=== PATIENT | female | born 1995 | race Caucasian/White ===

== ENCOUNTER 2017-09-21 12:22 | Emergency (ER) | payer BC, OTHER ==
[2017-09-21] MEDS: IBUPROFEN 200 MG TAB PO (13:06)
[2017-09-21] MEDS: ACETAMINOPHEN 325 MG TAB PO (13:06)
== END 2017-09-21 14:29 | disposition home or self-care (01) ==
LOC: FTE 12:22
DX: M54.10 Radiculopathy, site unspecified (principal); M54.2 Cervicalgia; R20.2 Paresthesia of skin; R20.0 Anesthesia of skin
CPT/HCPCS: 71045; 72040; 93005; 99284-25

== ENCOUNTER 2018-06-04 20:11 | Emergency (ER) | payer SELFPAY, BC | END 2018-06-05 02:15 | disposition left against medical advice (07) | LOC: FTE 06-05 02:15 | DX: Z53.21 Procedure and treatment not carried out due to patient leaving prior to being seen by health care provider (principal) ==